=== PATIENT | female | born 1960 | race Caucasian/White ===

== ENCOUNTER → 2017-08-24 | Outpatient (CLI) | payer OTHER | LOC: FIMAGING 07:47 | PROVIDERS: ATTEND Internal Medicine | DX: Z12.31 Encounter for screening mammogram for malignant neoplasm of breast (principal) | CPT/HCPCS: G0202 ==

== ENCOUNTER 2018-08-13 07:29 | Observation (INO) | payer OTHER ==
--- NOTE | 2018-08-13 08:07 | EDPHY ---
H & P Stated Complaint: Lower abdo cramping since last night. Time Seen by Provider: 08/13/18 08:07 - Personal History Current Tetanus Diphtheria and Acellular Pertussis (TDAP): Yes - Medical/Surgical History Hx Asthma: No Hx Chronic Respiratory Disease: No Hx Diabetes: No Hx Cardiac Disease: No Hx Renal Disease: No Hx Cirrhosis: No Hx Alcoholism: No Hx HIV/AIDS: No Hx Splenectomy or Spleen Trauma: No Other PMH: Heartburn. Apthous ulcers. - Social History Smoking Status: Never smoked Constitutional: Initial Vital Signs Temperature (C) 36.6 C 08/13/18 07:31 Heart Rate 82 08/13/18 07:31 Respiratory Rate 18 08/13/18 07:31 Blood Pressure 107/67 08/13/18 07:31 O2 Sat (%) 96 08/13/18 07:31 O2 Delivery Mode Nasal Cannula O2 (L/minute) 2 Allergies/Adverse Reactions: acetaminophen [From Percocet] Allergy (Verified 08/13/18 07:35) oxycodone [From Percocet] Allergy (Verified 08/13/18 07:35) Home Medications: Medication Instructions Recorded Omeprazole 08/13/18 Medical Decision Making - Diagnostics Imaging: Discussed imaging studies w/ bog worker Radiologist, I viewed and interpreted images myself ED Course/Re-evaluation: CHIEF COMPLAINT: Abdominal pain HISTORY OF PRESENT ILLNESS: 58-year-old female who was seen 1st for this process June 22. She had a CT scan for her right lower quadrant abdominal pain and was told she had ileitis. She was treated with 10 days of Cipro and Flagyl. She said her symptoms eventually resolved but they did not resolve until probably end of July. This certainly did not resolve during the course of antibiotic treatment. She then was doing fairly well and saw her GI physician for a slight flare up in July another CT scan was performed and she was deemed to be constipated at that time. She states she has been having normal bowel movements throughout the course. She denies any nausea or vomiting but she has had some reflex mostly while taking the antibiotics. Denies any fevers or chills denies any peritoneal type symptoms with bumps not irritating her abdomen. REVIEW OF SYSTEMS: A comprehensive 10 system review of systems is otherwise negative aside from elements mentioned in the history of present illness and medical decision making. PHYSICAL EXAM: HR, BP, O2 Sat, RR. Temp noted General Appearance: Alert, well hydrated, appropriate, and non-toxic appearing. Head: Atraumatic without scalp tenderness or obvious injury Eyes: Pupils equal, round, reactive to light and accommodation, EOMI, no trauma , no injection. Ears: Clear bilaterally, no perforation, normal landmarks Nose: Atraumatic, no rhinorrhea, clear. Throat: There is no erythema or exudates, no lesions, normal tonsils, mucus membranes moist. Neck: Supple, nontender, no lymphadenopathy. Respiratory: No retractions, no distress, no wheezes, and no accessory muscle use. Lungs are clear to auscultation bilaterally. Cardiovascular: Regular rate and rhythm, no murmurs, rubs, or gallops. Bilateral carotid, radial, dorsalis pedis, and posterior tibial pulses intact. Good capillary refill all extremities. Gastrointestinal: Abdomen is soft, mild tenderness to deep palpation in the right lower quadrant and somewhat in the epigastric area, non-distended, no masses, no rebound, no guarding, no peritoneal signs. Musculoskeletal: Normal active ROM of all extremities, atraumatic. Neurological: Alert, appropriate, and interactive. The patient has non-focal cranial nerves, motor, sensory, and cerebellar exam. Skin: No rashes, good turgor, no nodules on palpation. Past medical history: Ileitis Past surgical history: No abdominal surgeries Family history: Noncontributory, negative autoimmune gastrointestinal problems Social history: , does not abuse tobacco drugs or alcohol DIAGNOSTICS/PROCEDURES/CRITICAL CARE TIME: Study: CT of the abdomen pelvis with IV contrast Indication: Possibly recurring ileitis versus some other abdominal process Results: CT scan of the abdomen and pelvis was obtained. The results of the study are ileitis, signs of chronic inflammation, no obstruction, perforation, or abscess. The study was read by the radiologist, Dr. Ko. I viewed the images myself on the PACS system. DIFFERENTIAL DIAGNOSIS: The differential diagnosis for the patient's abdominal pain included but was not limited to ovarian cyst, pelvic inflammatory disease, ovarian torsion, urinary tract infection, ectopic , cholecystitis, and appendicitis. MEDICAL DECISION MAKING: This patient does not have any peritoneal signs nor does she appear significantly ill. She is having recurrence of her abdominal symptoms which started in mid June. Interestingly, her abdominal symptoms did not resolve with a course of antibiotics and I have a suspicion that her ileitis may not be bacterial in nature. I am concerned potentially about an autoimmune process. She is a bit late in life to developed that. We will perform laboratory studies another CT scan. I will then contact her Gastroenterology team. Elevated WBC at 21. CT shows ileitis with signs of chronic inflammation. This supports likelihood of an autoimmune disease like Crohn's disease. 0935: Consulted with Dr. Hale GI. He would like CRP, ESR, and iron studies. He will decide on scope today vs tomorrow as well as steroid treatment. We've also decided on a course of 1gm IV Meropenem due to elevated WBC with neutrophil shift in the absence of a tissue diagnosis at this time. Spoke with hospitalist service. Dr. Pace accepts admission. - Data Points Laboratory Results: Laboratory Results 08/13/18 07:45 08/13/18 07:45 08/13/18 08/13/18 08/13/18 08:00 07:45 07:45 WBC RBC Hgb POC Hgb 13.3 gm/dL gm/dL (12.6-16.3) Hct Pending POC Hct 39 % % (38-47) MCV MCH MCHC RDW Plt Count MPV Neut % (Auto) Lymph % (Auto) Sheridan % (Auto) Eos % (Auto) Baso % (Auto) Nucleat RBC Rel Count Absolute Neuts (auto) Absolute Lymphs (auto) Absolute Monos (auto) Absolute Eos (auto) Absolute Basos (auto) Absolute Nucleated RBC Immature Gran % Immature Gran # ESR Pending POC Sodium 143 mEq/L mEq/L (135-145) Sodium POC Potassium 3.8 mEq/L mEq/L (3.3-5.0) Potassium POC Chloride 107 mEq/L mEq/L (97-110) Chloride Carbon Dioxide Anion Gap POC BUN 11 mg/dL mg/dL (7-23) BUN Creatinine POC Creatinine 0.7 mg/dL mg/dL (0.6-1.0) Estimated GFR Glucose POC Glucose 81 mg/dL mg/dL (70-100) Calcium Iron Pending TIBC Pending Iron Saturation Pending Ferritin Pending Total Bilirubin Conjugated Bilirubin Unconjugated Bilirubin AST ALT Alkaline Phosphatase C-Reactive Protein Pending Total Protein Albumin Lipase 08/13/18 08/13/18 07:45 07:45 WBC 21.16 10^3/uL H 10^3/uL (3.80-9.50) RBC 4.30 10^6/uL 10^6/uL (4.18-5.33) Hgb 11.9 g/dL L g/dL (12.6-16.3) POC Hgb Hct 37.2 % L % (38.0-47.0) POC Hct MCV 86.5 fL fL (81.5-99.8) MCH 27.7 pg L pg (27.9-34.1) MCHC 32.0 g/dL L g/dL (32.4-36.7) RDW 17.2 % H % (11.5-15.2) Plt Count 472 10^3/uL H 10^3/uL (150-400) MPV 8.9 fL fL (8.7-11.7) Neut % (Auto) 83.0 % H % (39.3-74.2) Lymph % (Auto) 8.1 % L % (15.0-45.0) Sheridan % (Auto) 5.2 % % (4.5-13.0) Eos % (Auto) 2.7 % % (0.6-7.6) Baso % (Auto) 0.4 % % (0.3-1.7) Nucleat RBC Rel Count 0.0 % % (0.0-0.2) Absolute Neuts (auto) 17.58 10^3/uL H 10^3/uL (1.70-6.50) Absolute Lymphs (auto) 1.72 10^3/uL 10^3/uL (1.00-3.00) Absolute Monos (auto) 1.09 10^3/uL H 10^3/uL (0.30-0.80) Absolute Eos (auto) 0.57 10^3/uL H 10^3/uL (0.03-0.40) Absolute Basos (auto) 0.08 10^3/uL 10^3/uL (0.02-0.10) Absolute Nucleated RBC 0.00 10^3/uL 10^3/uL (0-0.01) Immature Gran % 0.6 % % (0.0-1.1) Immature Gran # 0.12 10^3/uL H 10^3/uL (0.00-0.10) ESR POC Sodium Sodium 142 mEq/L mEq/L (135-145) POC Potassium Potassium 3.9 mEq/L mEq/L (3.3-5.0) POC Chloride Chloride 105 mEq/L mEq/L (97-110) Carbon Dioxide 29 mEq/l mEq/l (22-31) Anion Gap 8 mEq/L mEq/L (8-16) POC BUN BUN 14 mg/dL mg/dL (7-23) Creatinine 0.6 mg/dL mg/dL (0.6-1.0) POC Creatinine Estimated GFR > 60 Glucose 76 mg/dL mg/dL (70-100) POC Glucose Calcium 8.9 mg/dL mg/dL (8.5-10.4) Iron TIBC Iron Saturation Ferritin Total Bilirubin 0.3 mg/dL mg/dL (0.1-1.4) Conjugated Bilirubin 0.1 mg/dL mg/dL (0.0-0.5) Unconjugated Bilirubin 0.2 mg/dL mg/dL (0.0-1.1) AST 22 IU/L IU/L (14-46) ALT 31 IU/L IU/L (9-52) Alkaline Phosphatase 93 IU/L IU/L (38-126) C-Reactive Protein Total Protein 5.9 g/dL L g/dL (6.3-8.2) Albumin 3.3 g/dL L g/dL (3.5-5.0) Lipase 100 IU/L IU/L (23-300) Medications Given: Discontinued Medications Hydromorphone HCl (Dilaudid) 1 mg IVP EDNOW ONE Stop: 08/13/18 08:13 Last Admin: 08/13/18 08:22 Dose: 1 mg Sodium Chloride (Ns) 1,000 mls @ 0 mls/hr IV EDNOW ONE; Wide Open PRN Reason: Protocol Stop: 08/13/18 08:13 Last Admin: 08/13/18 08:21 Dose: 1,000 mls Ketorolac Tromethamine (Toradol) 30 mg IVP EDNOW ONE Stop: 08/13/18 08:13 Last Admin: 08/13/18 08:22 Dose: 30 mg Ondansetron HCl (Zofran) 4 mg IVP EDNOW ONE Stop: 08/13/18 08:13 Last Admin: 08/13/18 08:22 Dose: 4 mg Point of Care Test Results: Chemistry 08/13/18 08:00 POC Sodium 143 mEq/L mEq/L (135-145) POC Potassium 3.8 mEq/L mEq/L (3.3-5.0) POC Chloride 107 mEq/L mEq/L (97-110) POC BUN 11 mg/dL mg/dL (7-23) POC Creatinine 0.7 mg/dL mg/dL (0.6-1.0) POC Glucose 81 mg/dL mg/dL (70-100) ISTAT H&H 08/13/18 08:00 POC Hgb 13.3 gm/dL gm/dL (12.6-16.3) POC Hct 39 % % (38-47) Departure - Departure Disposition: [facility] Inpatient Acute Clinical Impression: Ileitis Condition: Fair Instructions: Abdominal Pain (ED) Referrals: Ann Canales [Primary Care Provider] - As per Instructions
[2018-08-13] MEDS ORDERED: HYDROmorphONE/DILAUDID 2 MG/ML INJ IVP ONE (08:12)
[2018-08-13] MEDS ORDERED: KETOROLAC 30 MG/1 ML SDV IVP ONE (08:12)
[2018-08-13] MEDS ORDERED: NS 1,000 ML IV ONE (08:12)
[2018-08-13] MEDS ORDERED: ONDANSETRON 4 MG/2 ML VIAL IVP ONE (08:12)
[2018-08-13 08:19] LABS: PLATELET COUNT 472 10^3/uL (150-400)
[2018-08-13] MEDS ORDERED: IOPAMIDOL (ISOVUE-300) 100 ML BTL ONE (08:30)
[2018-08-13] MEDS ORDERED: MEROPENEM 1 GM in NS 100 ML IV ONE (09:47)
[2018-08-13] MEDS ORDERED: traMADol 50 MG TAB PO PRN (12:35)
[2018-08-13] MEDS ORDERED: HYDROmorphONE/DILAUDID 1 MG/ML INJ IVP PRN (12:35)
[2018-08-13] MEDS ORDERED: ACETAMINOPHEN 325 MG TAB PO PRN (12:35)
[2018-08-13] MEDS ORDERED: PROMETHAZINE HCL 25 MG/ML INJ IVP PRN (12:35)
[2018-08-13] MEDS ORDERED: NS 1,000 ML IV SCH (12:45)
[2018-08-13] MEDS: CIPROFLOXACIN 500 MG TAB PO SCH (13:29)
[2018-08-13] MEDS: metroNIDAZOLE 500 MG TAB PO SCH (13:30)
--- NOTE | 2018-08-13 13:59 | GHP ---
DATE OF ADMISSION: 08/13/2018 CHIEF COMPLAINT: Right lower quadrant pain. HISTORY: The patient is a 58-year-old female, who was diagnosed with ileitis in mid June. She was treated with 10 days of ciprofloxacin and Flagyl and she did improve although it took quite a few we eks for her to resolve completely. She had recurrence of symptoms in mid-July and had another C AT scan. At that point was consistent with constipation. She now re-presents to the hospital with 4 8 hours of increased severe pain in the same location, right lower quadrant, got excruciatingly sever e last night so she came to the emergency room. Her bowel movements have always been normal. She lovelace s never had diarrhea. No nausea or vomiting. Oral intake has been okay. She denies any weight loss . She had fevers off and on especially initial diagnosis in mid June. PAST MEDICAL HISTORY: 1. GERD. 2. Continuous aphthous ulcers. 3. Colonoscopy every 5 years due to family history. The last one in 2015. MEDICATIONS: Please see computer record for full detailed list. ALLERGIES: Oxycodone. SOCIAL HISTORY: No smoking. Rare alcohol. She lives with her . REVIEW OF SYSTEMS: Complete review of systems obtained. Review of systems negative regarding consti tutional, HEENT, GI, pulmonary, vascular, , hematology, skin, muscular, endocrine, psych, except fo r positives and negatives as noted in HPI. FAMILY HISTORY: Her sister of colon cancer at age 42. PHYSICAL EXAMINATION: GENERAL: Well-developed, well-nourished female, in no acute distress. VITAL SIGNS: Temperature is 36.9, pulse 74, blood pressure 95/62, saturating 95% on room air. EYE EXAMINA TION: Normal conjunctivae. Pupils equal and react to light. ENT: Normal ears, and nose. Hearing intact. Normal teeth. Oropharynx moist. NECK: Trachea midline. No thyromegaly. CHEST: Normal r espiratory effort. LUNGS: Clear to auscultation bilaterally. CARDIOVASCULAR: Regular rhythm. No murmur. No lower extremity edema. ABDOMEN: Soft, positive tenderness right lower quadrant without rebound or guarding. No hepatosplenomegaly. SKIN: Warm, dry, intact without rash. MUSCULOSKELETAL : No cyanosis or clubbing. Strength 5/5 upper and lower extremities. NEUROLOGIC: Cranial nerves i ntact. Normal sensation to light touch. PSYCHIATRIC: Alert and oriented x3. Normal mood and affec t. Normal judgment and insight. Normal memory. LABORATORY DATA: White count 21.16, hematocrit 37.2, platelets 472. Sodium 142, potassium 3.9, chlo ride 105, bicarb 29, BUN 14, creatinine 0.6, glucose 76. ESR 17, CRP 25, ferritin 11, TIBC 212. Uri nalysis is negative. CT scan of the abdomen and pelvis shows enteritis in the distal ileus so this c ase was discussed with Dr. Julien Garcia in the emergency room regarding ER course, he consulted Dr. Cuong tang. ASSESSMENT/PLAN: 1. Ileitis. Differential diagnosis is infectious versus inflammatory. Continue empiric antibiotics , ciprofloxacin and Flagyl. Gastroenterology has been consulted and plan for colonoscopy tomorrow mo rning. We will continue pain control with IV Dilaudid. 2. Gastroesophageal reflux disease. Continue proton pump inhibitor. 3. Continuous aphthous ulcers. I query if this may be consistent with a possible irritable bowel di sease. CODE STATUS: Full. ADMISSION STATUS: Will admit to observation. Will re-evaluate tomorrow. DVT PROPHYLAXIS: She is low risk. /[id number]/MODL
--- NOTE | 2018-08-13 14:32 | ASMTCMCOM ---
CM Note CM Note Notes: Pt has been admitted with ileitis. A colonoscopy is planned for tomorrow morning. She lives with her in [place]. CM will follow for any d/c needs. Date Signed: 08/13/2018 02:31 PM Electronically Signed By:EUGENIO Eaton
[2018-08-13] MEDS: HYDROCODONE/APAP 5/325 TAB PO PRN (16:08)
--- NOTE | 2018-08-13 17:15 | GCON ---
DATE OF CONSULTATION: 08/13/2018 REFERRING PHYSICIAN: Kaylene Pace MD REASON FOR CONSULTATION: Abnormal imaging/abdominal pain. CHIEF COMPLAINT: Right lower quadrant abdominal pain. HISTORY OF PRESENT ILLNESS: The patient is a 58-year-old female who presents to [facility] with complaints of abdominal pain. She states she was doing quite well until June when she started experiencing crampy pain in her right lower quadrant pain. This pain got progressively worse and can last hours in duration. She denies any exacerbating factors including eating. She states the pain is sometimes relieved with Advil, as well as a heating pad. She has a mild change in bowel habits and may have more looser stools. She denies any blood in her stools. Vera denies a family history of inflammatory bowel disease. She did have a colonoscopy done 06/16/[address] Sheehan with terminal ileal intubation with no evidence of Crohn disease. On ER evaluation she had a CT scan which did reveal ileitis. She had a prior scan with the same finding, and she was placed on Flagyl and Cipro with a little relief of her symptoms. I am being asked by Dr. Pace to evaluate the patient in consultation regarding her abnormal imaging/abdominal pain. PAST MEDICAL HISTORY: 1. Hypothyroidism. 2. Heartburn. PAST SURGICAL HISTORY: No past surgical history. ALLERGIES: Acetaminophen, oxycodone. MEDICATIONS: Omeprazole. SOCIAL HISTORY: No significant alcohol or tobacco use. FAMILY HISTORY: No history of inflammatory bowel disease. REVIEW OF SYSTEMS: A 14-point comprehensive review of systems was asked. Pertinent positives and negatives per HPI. PHYSICAL EXAMINATION: VITALS: Blood pressure 110/65, pulse 74, respirations 16 , temperature 36.9. GENERAL: Awake, alert and oriented x3. No distress. HEENT: Anicteric. Moist mucosa. NECK: No JVD. CARDIOVASCULAR: Regular rhythm, positive S1, S2. No gallops appreciated. LUNGS: Clear to auscultation bilaterally. No wheezes, rales, or rhonchi. ABDOMEN: Soft. Mild tenderness in the right lower quadrant. No guarding. No rebound. Positive bowel sounds. EXTREMITIES: No clubbing, cyanosis or edema. NEUROLOGIC: 2 through 12 grossly intact. PSYCH: Normal affect. SKIN: No rash. MUSCULOSKELETAL: No obvious joint effusions. LABORATORY DATA: WBC 21.6, hemoglobin 11.9, ESR 17, platelets 472. C-reactive protein 25. Iron studies low. ASSESSMENT AND PLAN: Ileitis- with RLQ abdominal pain and mild change in her habits. It has been present for the last several months. Etiology ? Crohn disease versus infectious versus other. Have strong suspicion of Crohn disease due to the duration. Will recommend to check stool studies. We will also recommend to proceed with a colonoscopy with terminal ileum intubation. The risks, benefits , and alternatives of the procedure were discussed in great detail with the patient. The risk of infection, bleeding, perforation, and sedation were discussed. All questions answered. Informed consent was obtained. Thank you very much for this consultation. /[id number]/MODL MTDD
[2018-08-13] MEDS: PANTOPRAZOLE SODIUM 40 MG TAB PO SCH (20:00)
[2018-08-13] MEDS ORDERED: PEG 3350/NA SULF,BICARB,CL/KCL (GAVILYTE-G) 4000 ML BTL PO ONE (20:00)
[2018-08-13] MEDS ORDERED: CIPROFLOXACIN 100 MG/ML 100ML BTL PO SCH (21:00)
[2018-08-13] MEDS: ONDANSETRON 4 MG/2 ML VIAL IVP PRN (21:53)
[2018-08-14] MEDS: CIPROFLOXACIN 500 MG TAB PO SCH ×2 (00:13→13:08)
[2018-08-14] MEDS: metroNIDAZOLE 500 MG TAB PO SCH ×2 (00:13→13:08)
[2018-08-14] MEDS ORDERED: BISACODYL 10 MG SUPP PR PRN (01:51)
[2018-08-14] MEDS ORDERED: POLYETHYLENE GLYCOL 3350 17 GM PKT PO PRN (01:51)
[2018-08-14] MEDS ORDERED: LACTULOSE 20 GM/30 ML UDCUP PO PRN (01:51)
[2018-08-14] MEDS ORDERED: MAGNESIUM HYDROXIDE 30 ML UDCUP PO PRN (01:51)
[2018-08-14] MEDS: HYDROCODONE/APAP 5/325 TAB PO PRN ×2 (03:23→13:08)
[2018-08-14 04:56] LABS: PLATELET COUNT 366 10^3/uL (150-400)
[2018-08-14] MEDS ORDERED: LIOTHYRONINE PO SCH (09:00)
[2018-08-14] MEDS ORDERED: DHEA TP SCH (09:00)
[2018-08-14] MEDS ORDERED: SENNOSIDES/DOCUSATE SODIUM TAB PO SCH (09:00)
[2018-08-14] MEDS ORDERED: BIEST TP SCH (09:00)
[2018-08-14] MEDS ORDERED: LEVOTHYROXINE PO SCH (09:00)
--- NOTE | 2018-08-14 10:58 | SOAPPROG ---
SOAP Progress Note Assessment/Plan: Assessment: 1. Enteropathogenic E coli infection; likely cause of symptoms and abnormal CT. ? Common Variable Immunodeficiency Syndrome. 2. RLQ abdominal pain; resolved. 3. Ileitis on CT, likely secondary to E. coli infection. Plan: 1. Cancel colonoscopy. 2. ADRIANNA. 3. Home soon. 4. Oral antibiotics x 2 weeks. 5. Outpatient colonoscopy in 2 months to r/o any underlying IBD. 6. Quantitative immunoglobin panel. Josesito Sheehan MD 08/14/18 11:00 Subjective: CC: Abnormal CT of abdomen. Interval HPI: Patient without complaints today. Stool positive for enteropathogenic E. coli. Objective: Vital Signs Temp Pulse Resp BP Pulse Ox 36.8 C 72 16 95/59 L 96 08/14/18 09:00 08/14/18 09:00 08/14/18 09:00 08/14/18 09:00 08/14/18 07:48 Microbiology 08/14/18 03:30 Gastrointestinal Tract Panel (PCR) - Final Stool E.coli Enteropathogenic(Epec) Laboratory Results 08/14/18 04:31 08/13/18 08/14/18 08/15/18 05:59 05:59 05:59 Intake Total 1300 Balance 1300 Physical Exam - Physical Exam General Appearance: WD/WN, alert, no apparent distress Respiratory: lungs clear, normal breath sounds Cardiac/Chest: regular rate, rhythm Abdomen: normal bowel sounds, non-tender, soft Skin: normal color, warm/dry Neuro/Psych: alert, normal mood/affect, oriented x 3 ICD10 Worksheet Patient Problems: Problems Problem Status Onset Ileitis Acute
[2018-08-14] MEDS: PANTOPRAZOLE SODIUM 40 MG TAB PO SCH (13:08)
--- NOTE | 2018-08-14 13:14 | ASMTCMCOM ---
CM Note CM Note Notes: Pt's infection from E coli, colonoscopy cancelled. Will start antibiotics and will dc home w/support of as long as she is medically stable. CM available for any changes. DC Plan: Independent Date Signed: 08/14/2018 01:13 PM Electronically Signed By:Lori Babcock RN
[2018-08-14] MEDS ORDERED: metroNIDAZOLE 500 MG TAB PO SCH ×2 (14:00→22:00)
[2018-08-14] MEDS: ONDANSETRON 4 MG/2 ML VIAL IVP PRN (14:32)
--- NOTE | 2018-08-14 14:40 | GCON ---
INFECTIOUS DISEASE CONSULT PERSON REQUESTING CONSULT: Dr. Kaylene Pace REASON FOR CONSULT: To assist in management of this 58-year-old female admitted with terminal ileitis. HISTORY OF PRESENT ILLNESS: The patient is a very pleasant 58-year-old female whose previous medical history is notable for the followin. Aphthous ulcers x7 years: The patient states that she has continuous small oral ulcerations of unclear etiology. She states that initially she had 1 tiny vaginal ulcer as well, but she has had no further vaginal ulcerations. She states that her primary care doctor, Dr. Ann Canales, prescribed omeprazole several weeks ago, which she thinks is helping the ulcerations. She reports having an upper endoscopy [address] Sheehan to further evaluate the ulcerations. She was told that this was okay, she did not have esophageal ulcerations, per se. 2. Status post tonsillectomy and knee arthroscopy in the . 3. History of benign thyroid nodules in the past. Regarding her present issues, the patient states that she was fine until June 23 when she developed some crampy right lower quadrant abdominal pain associated with a fever of 101. No diarrhea. She saw her primary care doctor and a CT scan was performed (this was performed in [facility], and is not in our system). She reports that it revealed terminal ileitis, and she was put on ciprofloxacin and metronidazole for 10 days. Again, the patient had no diarrhea whatsoever at that time. She states that she slowly improved over several weeks with decreased cramping. She states that she had perhaps a good week or 2 and saw Rebecca Kang, physician tax accounting assistant of Dr. Sheehan, this past Thursday as her primary care had referred her to GI for followup of terminal ileitis. She told him that she felt much better, therefore, no interventions were performed. Then, this past , the patient developed recurrent right lower quadrant cramping again. She states that this time it was worse than last time, and came on suddenly. She denies any diarrhea whatsoever, but reports more constipation associated with this. Because of the increasing pain yesterday and the fact that she could not get a hold of her primary care doctor and knew she could not get a hold of a implementation consultant urgently, she came to [facility] for further evaluation and treatment. In the emergency room, the patient was febrile for 37.9. She had a CT scan performed of the abdomen and pelvis that revealed "the distal 10 cm segment of the ileum has concentric wall thickening and increased enhancement." There was evidence of moderate volume of retained stool in the colon as well. She had mild lymphadenopathy also noted throughout the mesenteric root and ileocolic distribution unchanged compared with a CT scan done June 2018 (this was after her CT scan done at the outside hospital was uploaded here). She was given a dose of meropenem, which was changed to ciprofloxacin and metronidazole. She was supposed to have a colonoscopy this morning, but her stool pathogen PCR came back positive for enteropathogenic E coli. Again, the patient was not having any diarrhea. Dr. Sheehan was concerned about performing a colonoscopy and misdiagnosis in the setting of an active infection; therefore, the colonoscopy was aborted. Speaking with the patient today, she states that she is quite hungry. She reports a 40-pound intentional weight loss over the past 3 months after she changed her diet to try and help her oral ulcerations. She states she cut out gluten and sugar. Her energy level is excellent as is her appetite. She has had some diminished energy lately. She denies any significant headache, nausea , vomiting, chest pain, cough, shortness of breath, burning with urination, vaginal ulcers or discharge, diarrhea, blood in her stool, or other. She absolutely denies any joint symptoms whatsoever. No rashes. PREVIOUS MEDICAL HISTORY: As outlined above. The patient reports a normal colonoscopy back in 2015. ALLERGIES: Oxycodone causes nausea and vomiting. MEDICATIONS: Presently include ciprofloxacin 500 mg p.o. q.12 hours and metronidazole 500 mg p.o. q.12 hours as well as lactulose and Dilaudid and Protonix 40 mg p.o. daily. SOCIAL HISTORY: The patient is born and raised in [place]. She has never lived overseas. She has a supportive with whom she lives along with her 26-year-old son, all of whom are healthy with no history of diarrheal illnesses. No pets. She works as a physical therapist here in town. No tobacco. Rare alcohol. No illicit substances. She traveled to [place] back in 1998, but did not go in the out[place] and was really only touring the [facility] and urban areas. No unpasteurized foods, undercooked meats, or raw foods. She has 2 healthy children. No history of inflammatory bowel disease. FAMILY HISTORY: Mother and father alive and well. Sister of colon cancer at age 42. She did not receive treatment upon receiving a diagnosis and unfortunately committed suicide. She has a brother who is healthy. REVIEW OF SYSTEMS: As outlined above. Otherwise, 10 systems are reviewed and are negative. PHYSICAL EXAM: VITALS: T current 37.7, T-max is same. Heart rate 91, blood pressure 115/62, 89% on room air. GENERAL: Well-nourished, well-developed, middle-aged female, lying in bed, no apparent distress. Atraumatic, normocephalic. HEENT: Pupils equal, round, reactive to light. Extraocular movements are intact. No conjunctival injection, icterus, or petechiae. Mucous membranes moist. There is a very tiny superficial oral ulceration on the inner aspect of the upper lip on the left side. No other oral lesions noted. Dentition in excellent repair. Tongue appears normal. NECK: No cervical or supraclavicular lymphadenopathy. No thyromegaly or thyroid nodules. CARDIOVASCULAR: S1, S2. No rubs, gallops, or murmurs. LUNGS : No increased respiratory effort. Clear to auscultation bilaterally. No rales, rhonchi, or wheeze. ABDOMEN: Mild, tenderness to palpation in the right lower quadrant. Hypoactive bowel sounds. No distention or peritoneal signs. EXTREMITIES: No clubbing, cyanosis, or edema or evidence of arthritis. SKIN: Warm and dry. No rashes. NEUROLOGIC: She is alert and oriented x3. LABORATORY DATA: Microbiologic data: Stool pathogen PCR with enteropathogenic E coli. White blood cell count of 17.5 down from 21 on admission, hematocrit 29 , platelet count of 366. Differential shows 82% neutrophils, BUN and creatinine are 11/0.7. Liver function tests on admission were within normal limits. C-reactive protein of 25, ESR of 17. Immunoglobulins are pending. Urinalysis negative. Radiographic data as outlined above. IMPRESSION: 58-year-old female with history of idiopathic aphthous ulcers in her mouth, now admitted with her 2nd episode of terminal ileitis. At this point in time, given absence of diarrhea, suspect the enteropathogenic E coli is a colonizer and not the cause of her terminal ileitis. With history of aphthous ulcers, agree with concern for underlying inflammatory bowel disease. Doubt other infectious etiologies, such as tuberculosis or CMV, as she is an otherwise normal host. PLAN: 1. Continue antibiotics as is for now to complete 7-10 days of treatment in case of bacterial translocation. I have spoken at length with Dr. Sheehan who would prefer to treat her with antibiotics before proceeding with a colonoscopy. He and I both agree that the E coli is likely not causative. This was all explained to the patient today. 2. Obtain HIV test for completeness sake. Immunoglobulins are pending. 3. Change metronidazole to 500 mg p.o. Q.8 hours. Thank you very much for consulting Infectious Diseases. We will continue to follow the patient with you. /[id number]/MODL MTDD
[2018-08-14 16:13] VITALS: BP 95/58
--- NOTE | 2018-08-14 16:28 | HOSPPROG ---
Hospitalist Progress Note Assessment/Plan: * Recurrent terminal ileitis -colonoscopy this am cancelled by GI due to Toxigenic E.coli in stool -colonoscopy in few weeks once abx complete -advance diet - but threw up with first attempt at PO * Toxigenic E.coli -d/w Dr. Nichols - suspect contaminant -cipro/flagyl x 10 days * Aphthous ulcers - likely part of her IBD * GERD - PPI Subjective: Ate lunch and then threw up Objective: Vital Signs Temp Pulse Resp BP Pulse Ox 36.4 C 88 16 95/58 L 91 L 08/14/18 16:10 08/14/18 16:10 08/14/18 16:10 08/14/18 16:10 08/14/18 16:10 Microbiology 08/14/18 03:30 Gastrointestinal Tract Panel (PCR) - Final Stool E.coli Enteropathogenic(Epec) Laboratory Results 08/14/18 04:31 08/13/18 08/14/18 08/15/18 05:59 05:59 05:59 Intake Total 1300 Balance 1300 d/w Dr. Nichols regarding E.coli - Time Spent With Patient Time Spent with Patient: greater than 35 minutes Time Spent with Patient: Greater than 35 minutes spent on this patients care, greater than 50% of time spent counseling, educating, and coordinating care regarding the above mentioned plan. - Physical Exam Constitutional: no apparent distress, appears nourished, not in pain Cardiovascular: regular rate and rhythym, no murmur, rub, or gallop Respiratory: no respiratory distress, no rales or rhonchi, clear to auscultation Gastrointestinal: normoactive bowel sounds, soft, non-tender abdomen, no palpable masses Skin: no rashes or abrasions, no fluctuance, no induration Neurologic: AAOx3, sensation intact bilaterally Psychiatric: interacting appropriately, not anxious, not encephalopathic, thought process linear ICD10 Worksheet Patient Problems: Problems Problem Status Onset Ileitis Acute
--- NOTE | 2018-08-15 05:57 | GDS ---
DISCHARGE DIAGNOSES: 1. Recurrent terminal ileitis. 2. Toxigenic Escherichia colitis in the stool. 3. Continuous aphthous ulcers. 4. Gastroesophageal reflux disease. HISTORY OF PRESENT ILLNESS: The patient is a 58-year-old female, who is here with her 2nd episode of terminal ileitis. Her 1st episode was treated with a course of antibiotics. Now only a few weeks l ater it has recurred. This has now become more suspicious for Crohn disease. GI was consulted. We did plan for colonoscopy, but her GI PCR panel came back positive for toxigenic E coli. Dr. Gavi lieberman did not feel comfortable doing her colonoscopy with this chance of possible infectious colitis. S he is being treated with ciprofloxacin and Flagyl. Dr. Nichols was consulted to comment on why this pa tient may have recurrent toxigenic E coli infection, and Dr. Nichols feels this stool finding is likely just a contaminant, and she does have underlying Crohn disease. Given Dr. Sheehan's concerns, ho wever, we are electing to treat for 10 days of antibiotics at which point colonoscopy can be attempte d as an outpatient. The patient's pain is improved at this point, and she is tolerating a diet and v manas anxious for discharge home. DISCHARGE MEDICATIONS: Please see computer record for full detailed list. New medications: 1. Ciprofloxacin 500 mg p.o. q.12 hours x10 days. 2. Flagyl 500 mg p.o. q.8 hours x10 days. 3. Vicodin 1 tab p.o. q.4 hours as needed, 10 tablets dispensed. ADDITIONAL DISCHARGE INSTRUCTIONS: 1. Followup with Dr. Sheehan when antibiotics are complete to arrange colonoscopy. 2. Quantitative immunoglobulins and HIV tests are still pending at discharge. These can be followed up with either Dr. Nichols or primary care. 3. Greater than 30 minutes' time spent arranging this discharge. Patient seen and examined by me on the day of discharge. /[id number]/MODL
[2018-08-16 02:06] LABS: HIV TYPE 1 AND 2 NEGATIVE (NEGATIVE)
== END 2018-08-14 17:44 | disposition home or self-care (01) ==
LOC: F1N 11:19
PROVIDERS: ADMIT Internal Medicine; ATTEND Internal Medicine
DX: K50.00 Crohn's disease of small intestine without complications (principal); B96.20 Unspecified Escherichia coli [E. coli] as the cause of diseases classified elsewhere; K21.9 Gastro-esophageal reflux disease without esophagitis; K12.0 Recurrent oral aphthae; E03.9 Hypothyroidism, unspecified
CPT/HCPCS: 74177; 96361; 96365; 96375; 96376; 99285; G0378; 82435-PO; 82565-PO; 82784-90; 82947-PO; 84132-PO; 84295-PO; 84520-PO; 85014-PO; J1170; J1885; J2185; J2405; Q9967

== ENCOUNTER → 2018-09-06 | Outpatient (CLI) | payer OTHER | LOC: FIMAGING 15:11 | PROVIDERS: ATTEND Internal Medicine | DX: Z12.31 Encounter for screening mammogram for malignant neoplasm of breast (principal) ==

== ENCOUNTER 2018-11-11 12:03 | Emergency (ER) | payer OTHER ==
[2018-11-11] MEDS ORDERED: NS 1,000 ML IV ONE ×2 (12:26→12:44)
[2018-11-11 12:33] LABS: PLATELET COUNT 638 10^3/uL (150-400)
--- NOTE | 2018-11-11 12:44 | EDPHY ---
H & P Stated Complaint: Diarrhea/ABD pain Time Seen by Provider: 11/11/18 12:22 HPI/ROS: CHIEF COMPLAINT: Diarrhea, right lower quadrant pain HISTORY OF PRESENT ILLNESS: 58-year-old female with recurrent terminal ileitis and recent C difficile a colitis presents with diarrhea and right lower quadrant pain. In August 2018 she was diagnosed with infectious diarrhea and placed on a course of Cipro. Symptoms worsened while on Cipro and included bloody diarrhea. Diagnosed with C difficile colitis and placed on vancomycin. Did not tolerate vancomycin, so placed on a different antibiotic. She has been feeling well until 3 days ago, when she developed recurrent bloody diarrhea. Multiple episodes of bloody diarrhea daily, associated with persistent right lower quadrant pain. The pain is moderate and is similar to the pain she experienced in August 2018. Also has intermittent blood in urine. No fever, vomiting or other symptoms. REVIEW OF SYSTEMS: complete 10 point ROS reviewed and is negative except for the noted elements in the HPI - Personal History Current Tetanus/Diphtheria Vaccine: Yes - Medical/Surgical History Hx Asthma: No Hx Chronic Respiratory Disease: No Hx Diabetes: No Hx Cardiac Disease: No Hx Renal Disease: No Hx Cirrhosis: No Hx Alcoholism: No Hx HIV/AIDS: No Hx Splenectomy or Spleen Trauma: No Other PMH: Heartburn. Apthous ulcers. - Social History Smoking Status: Never smoked Alcohol Use: Sober Drug Use: None - Physical Exam Exam: General Appearance: Alert, pleasant and smiling, nontoxic-appearing Eyes: Pupils equal and round, no conjunctival pallor or injection ENT, Mouth: Mucous membranes slightly dry, ulceration on the underside of the tongue Neck: Normal inspection Respiratory: Lungs are clear to auscultation Cardiovascular: Regular rate and rhythm Gastrointestinal: Abdomen is soft, right lower quadrant tenderness, no peritoneal signs Neurological: A&O, nonfocal, normal gait Skin: Warm and dry, no rash Extremities: Nontender, no pedal edema Psychiatric: Mood and affect normal Constitutional: Initial Vital Signs Temperature (C) 36.7 C 11/11/18 12:07 Heart Rate 93 11/11/18 12:07 Respiratory Rate 16 11/11/18 12:07 Blood Pressure 115/66 11/11/18 12:07 O2 Sat (%) 94 11/11/18 12:07 O2 Delivery Mode Room Air Allergies/Adverse Reactions: oxycodone [From Percocet] Allergy (Verified 11/11/18 12:10) Vomiting vancomycin Allergy (Verified 11/11/18 12:10) Home Medications: Medication Instructions Recorded Biest 2/0.5 Dhea Cream 1 rosario TP DAILY 08/13/18 Compounded T3 9mcg/T4 38mcg 1 each PO DAILY 08/13/18 Herbals/Supplements -Info Only 1 each PO DAILY 08/13/18 Ibuprofen [Motrin (*)] 200 mg PO DAILY PRN 08/13/18 Multivitamins [Multivitamin (*)] 1 each PO DAILY 08/13/18 Omeprazole 40 mg PO BID 08/13/18 Ciprofloxacin [Cipro] 500 mg PO Q12H #20 tab 08/14/18 Hydrocodone/APAP 5/325 [Newberry 1 tab PO Q4HRS PRN #10 tab 08/14/18 5/325 (*)] metroNIDAZOLE [Flagyl 500 mg (*)] 500 mg PO Q8H #30 tab 08/14/18 predniSONE 40 mg PO DAILY #14 tab 11/11/18 Medical Decision Making - Diagnostics Imaging Results: Abdomen/Pelvis CT 11/11/18 12:49 Impression: 1. Technically limited evaluation, given the lack of IV and enteric contrast. 2. Suspect terminal ileitis and diffuse colitis. There is no pneumatosis, pneumoperitoneum, or mechanical obstruction observed. 3. Suspect mesenteric adenitis. 4. There is no nephrolithiasis or obstructive uropathy. This does not exclude the diagnosis of pyelonephritis. The urinary bladder is not distended, and not adequately evaluated on today's study. Findings were discussed with MARIO SANDHU MD at 13:44, on 11/11/2018. Imaging: Discussed imaging studies w/ scallop binder Radiologist ED Course/Re-evaluation: IV normal saline 2 L given for dehydration. CT scan of the abdomen and pelvis ordered because of leukocytosis, right lower quadrant pain and history of intermittent gross hematuria. GI pathogen panel negative, CT reveals inflammation of the terminal ileum and diffuse colitis. No localized abscess or appendicitis. Hemoglobin 8, similar to hemoglobin on 11/08/2018, discussed with patient. Understands may require blood transfusion if bleeding persists. She is currently taking iron supplementation. Patient would like to go home and declines admission. She clearly understands the risks and benefits of this decision and will return to the emergency department for any worsening of symptoms. Dr. Clarke was consulted and suggests increasing prednisone to 40 mg daily. The patient will continue mesalamine. She will follow up in the office in the next few days. Warning signs discussed with the patient, including increasing pain, fever and vomiting. Differential Diagnosis: Differential diagnosis includes though it is not limited to appendicitis, cholecystitis, diverticulitis, pyelonephritis, bowel perforation, small bowel obstruction. - Data Points Laboratory Results: Laboratory Results 11/11/18 12:25 11/11/18 12:25 Microbiology Results: MICROBIOLOGY 11/11/18 12:55 Stool Gastrointestinal Tract Panel (PCR) - Final No Organism Detected By Pcr Medications Given: Discontinued Medications Sodium Chloride (Ns) 1,000 mls @ 0 mls/hr IV EDNOW ONE; Wide Open PRN Reason: Protocol Stop: 11/11/18 12:27 Last Admin: 11/11/18 12:59 Dose: 1,000 mls Sodium Chloride (Ns) 1,000 mls @ 0 mls/hr IV ONCE ONE; Wide Open PRN Reason: Protocol Stop: 11/11/18 12:45 Last Admin: 11/11/18 13:00 Dose: 1,000 mls Departure - Departure Disposition: Home, Routine, Self-Care Clinical Impression: Crohns disease Qualifiers: Gastrointestinal tract location: small and large intestine Digestive disease complication type: with rectal bleeding Qualified Code(s): K50.811 - Crohn's disease of both small and large intestine with rectal bleeding Condition: Good Instructions: Crohn Disease (ED) Additional Instructions: Return for worsening symptoms, including increasing pain, vomiting and fever greater than 101. Drink plenty of fluids. Referrals: Devika Clarke MD [Medical Doctor] - As per Instructions (Dr Clarke's office will contact you to make an appointment. ) Ann Canales [Primary Care Provider] - As per Instructions Guillermo Vega MD [Medical Doctor] - As per Instructions (Call to make an appointment for evaluation of intermittent blood in urine. ) Prescriptions: predniSONE 40 mg PO DAILY #14 tab
[2018-11-11] MEDS ORDERED: IOPAMIDOL (ISOVUE-300) 100 ML BTL ONE (13:08)
[2018-11-11 15:48] VITALS: BP 106/60
== END 2018-11-11 15:55 | disposition home or self-care (01) ==
DX: K50.811 Crohn's disease of both small and large intestine with rectal bleeding (principal); E86.9 Volume depletion, unspecified; R12 Heartburn
CPT/HCPCS: Q9967

== ENCOUNTER → 2019-01-03 | Outpatient (CLI) | payer OTHER ==
[~2019-01-03] MED LIST: GADOBUTROL 10 ML VIAL IVP ONE; GLUCAGON HCL 0.3 MG in SYRINGE 0.3 ML IVP ONE
== END ==
LOC: FIMAGING 12-27 12:46
PROVIDERS: ATTEND Physician Assistant
DX: K59.00 Constipation, unspecified (principal); Z87.19 Personal history of other diseases of the digestive system
CPT/HCPCS: A9585; J1610